=== PATIENT | male | born 1980 | race Hispanic/Latino ===

== ENCOUNTER 2022-09-16 14:53 | Emergency (ER) | payer OTHER ==
[~2022-09-16] VITALS: Ht 160 cm; Wt 82.6 kg
[2022-09-16] MEDS ORDERED: VALS1TAB68 PO (15:02)
[2022-09-16] MEDS ORDERED: NAPR-837 PO (17:34)
[2022-09-16 17:42] VITALS: BP 158/101; TEMP 97.7; O2SAT 98
== END 2022-09-16 17:43 | disposition home or self-care (01) ==
LOC: M ED 14:53 → EDBD 14:53 → M ED 17:43
DX: M77.12 Lateral epicondylitis, left elbow (principal); I10 Essential (primary) hypertension; Z79.1 Long term (current) use of non-steroidal anti-inflammatories (NSAID); Z79.84 Long term (current) use of oral hypoglycemic drugs